=== PATIENT | male | born 1935 | race Caucasian/White ===

== ENCOUNTER 2018-08-30 19:01 | Emergency (ER) | payer MEDICAID, MEDICARE, OTHER ==
[~2018-08-30] VITALS: Ht 167.6 cm; Wt 81.6 kg
[2018-08-30 20:08] LABS: Basophils # (auto) 0 uL; Basophils % (auto) 0.6 % (0.0-2.0); Eosinophils # (auto) 0.3 uL; Eosinophils % (auto) 4.4 % (0.0-7.0); Hematocrit 48.9 % (41.0-53.0); Hemoglobin 16.1 g/dL (13.5-17.5); Lymphocytes # (auto) 1.8 uL; Lymphocytes % (auto) 28.7 % (10.0-50.0); Mean Corpuscular Hemoglobin 31.6 pg (28.0-32.0); Mean Corpuscular Volume 95.8 fL (80.0-100.0); Monocytes # (auto) 0.6 uL; Neutrophils # (auto) 3.5 uL; Neutrophils % (auto) 57.3 % (37.0-80.0); Nucleated Red Blood Cells % 0.1 %; Platelet Count (auto) 180 10^3/uL (140-450); Red Cell Distribution Width 15.6 % (11.8-14.3); White Blood Cell 6.2 10^3/uL (4.4-10.8)
[2018-08-30] MEDS ORDERED: SODIUM CHLORIDE 0.9% 1,000 ML IV ONE (20:10)
[2018-08-30 20:23] LABS: Alanine Aminotransferase 23 U/L (16-61); Albumin 3.5 g/dL (3.4-5.0); Anion Gap 10 (5-15); Blood Urea Nitrogen 17 mg/dL (7-18); Calcium 9.2 mg/dL (8.5-10.1); Carbon Dioxide 22 mmol/L (21-32); Chloride 104 mmol/L (98-107); Glucose 220 mg/dL (74-106); Potassium 3.8 mmol/L (3.5-5.1); Sodium 136 mmol/L (136-145)
[2018-08-30 20:28] LABS: Alkaline Phosphatase 92 U/L (45-117); Aspartate Aminotransferase 28 U/L (15-37); BUN/Creatinine Ratio 14.4; Bilirubin, Total 0.5 mg/dL (0.2-1.0); GFR African American 76 mL/min; GFR Non-African American 63 mL/min; Total Protein 7.5 g/dL (6.4-8.2)
[2018-08-30 22:34] LABS: Urine Bacteria NONE SEEN /hpf (None Seen); Urine Blood Negative /uL (Negative); Urine Hyaline Cast FEW /lpf (0 - 2); Urine Specific Gravity 1.024 (1.001-1.035); Urine WBC 2 /hpf (0 - 3)
[2018-08-31 00:28] VITALS: BP 139/64
== END 2018-08-31 02:35 | disposition home or self-care (01) ==
LOC: ER 19:01 → EDUNIT# 19:01 → ER 08-31 02:35
DX: K80.20 Calculus of gallbladder without cholecystitis without obstruction (principal); K57.30 Diverticulosis of large intestine without perforation or abscess without bleeding; J44.9 Chronic obstructive pulmonary disease, unspecified; E11.9 Type 2 diabetes mellitus without complications; E78.5 Hyperlipidemia, unspecified; I10 Essential (primary) hypertension
CPT/HCPCS: 36415; 74176; 80053; 81001; 83690; 83735; 84484; 85025

== ENCOUNTER 2020-07-27 13:48 | Emergency (ER) | payer MEDICARE, OTHER ==
[~2020-07-27] VITALS: Ht 172.7 cm; Wt 89.8 kg
[2020-07-27 15:17] LABS: Basophils # (auto) 0 10 ^3/uL (0-0.2); Basophils % (auto) 0.7 % (0.0-2.0); Eosinophils # (auto) 0.4 10 ^3/uL (0-0.8); Eosinophils % (auto) 5.4 % (0.0-7.0); Hematocrit 40.9 % (41.0-53.0); Hemoglobin 13.6 g/dL (13.5-17.5); Lymphocytes # (auto) 1.4 10 ^3/uL (0.4-5.4); Mean Corpuscular Hemoglobin 31.2 pg (28.0-32.0); Mean Corpuscular Hgb Conc. 33.2 g/dL (32.0-36.0); Mean Corpuscular Volume 93.8 fL (80.0-100.0); Monocytes # (auto) 0.5 10 ^3/uL (0-1.3); Monocytes % (auto) 7.7 % (0.0-12.0); Neutrophils # (auto) 4.4 10 ^3/uL (1.6-8.6); Neutrophils % (auto) 65.2 % (37.0-80.0); Nucleated Red Blood Cells % 0.1 %; Platelet Count (auto) 154 10^3/uL (140-450); Red Blood Cells 4.36 10^6/uL (4.5-5.90); Red Cell Distribution Width 15.8 % (11.8-14.3); White Blood Cell 6.7 10^3/uL (4.4-10.8)
[2020-07-27 15:37] LABS: Albumin 3.1 g/dL (3.4-5.0); Anion Gap 6 (5-15); Blood Urea Nitrogen 11 mg/dL (7-18); Calcium 8.1 mg/dL (8.5-10.1); Carbon Dioxide 26 mmol/L (21-32); Chloride 106 mmol/L (98-107); Glucose 212 mg/dL (74-106); Potassium 3.5 mmol/L (3.5-5.1); Sodium 138 mmol/L (136-145)
[2020-07-27 15:43] LABS: Alanine Aminotransferase 17 U/L (16-61); Alkaline Phosphatase 87 U/L (45-117); Aspartate Aminotransferase 15 U/L (15-37); Bilirubin, Total 0.5 mg/dL (0.2-1.0); GFR African American 101 mL/min; GFR Non-African American 83 mL/min; Total Protein 6.4 g/dL (6.4-8.2)
[2020-07-27 15:51] LABS: INR 1.05 (0.9-1.15); Partial Thromboplastin Time 28.1 sec (23.0-31.2)
[2020-07-27] MEDS ORDERED: DOCUSATE SOD 100 MG CAP PO ONE (16:45)
[2020-07-27 17:59] VITALS: BP 140/68
== END 2020-07-27 18:05 | disposition home or self-care (01) ==
LOC: ER 13:48 → EDBD 13:48 → ER 18:05
DX: K80.20 Calculus of gallbladder without cholecystitis without obstruction (principal); E11.65 Type 2 diabetes mellitus with hyperglycemia; E44.1 Mild protein-calorie malnutrition; J44.9 Chronic obstructive pulmonary disease, unspecified; E78.5 Hyperlipidemia, unspecified; I10 Essential (primary) hypertension; Z68.30 Body mass index [BMI] 30.0-30.9, adult
CPT/HCPCS: 36415; 71250; 74176; 80053; 84484; 85025; 85610; 85730; 93005

== ENCOUNTER 2023-08-30 22:03 | Inpatient (IN) | payer MEDICARE, MEDICAID ==
[~2023-08-30] VITALS: Ht 167.6 cm; Wt 85.8 kg
[2023-08-30 22:25] VITALS: PULSE 101; RESP 17; O2SAT 89
[2023-08-30] MEDS ORDERED: ACETAMINOPHEN 325 MG TAB PO ONE (22:30)
[2023-08-30 22:47] LABS: Basophils # (auto) 0 10 ^3/uL (0-0.2); Basophils % (auto) 0.2 % (0.0-2.0); Eosinophils # (auto) 0 10 ^3/uL (0-0.8); Hemoglobin 14.9 g/dL (13.5-17.5); Lymphocytes # (auto) 1.4 10 ^3/uL (0.4-5.4); Lymphocytes % (auto) 19.6 % (10.0-50.0); Mean Corpuscular Hemoglobin 31.1 pg (28.0-32.0); Mean Corpuscular Hgb Conc. 33.1 g/dL (32.0-36.0); Monocytes # (auto) 0.4 10 ^3/uL (0-1.3); Monocytes % (auto) 5.7 % (0.0-12.0); Neutrophils # (auto) 5.2 10 ^3/uL (1.6-8.6); Neutrophils % (auto) 74.5 % (37.0-80.0); Nucleated Red Blood Cells % 0.1 %; Red Blood Cells 4.79 10^6/uL (4.5-5.90); Red Cell Distribution Width 15.3 % (11.8-14.3)
[2023-08-30] MEDS ORDERED: cloNIDine HCL 0.1 MG TAB PO ONE (23:00)
[2023-08-30 23:06] LABS: Alanine Aminotransferase 19 U/L (7-40); Albumin 3.8 g/dL (3.2-4.8); Alkaline Phosphatase 78 U/L (46-116); Anion Gap 10 (5-15); Aspartate Aminotransferase 36 U/L (13-40); BUN/Creatinine Ratio 8.7 (10.0-20.0); Blood Urea Nitrogen 8 mg/dL (9-23); Calcium 8.1 mg/dL (8.7-10.4); Carbon Dioxide 22 mmol/L (20-30); Chloride 105 mmol/L (98-107); Glucose 202 mg/dL (74-106); Magnesium 1.5 mg/dL (1.6-2.6); Potassium 3.6 mmol/L (3.5-5.1); Sodium 137 mmol/L (136-145)
[2023-08-30 23:07] LABS: Bilirubin, Total 0.8 mg/dL (0.2-1.0); Total Protein 6.8 g/dL (5.7-8.2)
[2023-08-30 23:45] LABS: Rapid Influenza A Negative (Negative); Rapid Influenza B Negative (Negative)
[2023-08-30 23:47] LABS: COVID19 ANTIGEN SOFIA FIA POSITIVE (NEGATIVE)
[2023-08-31] VITALS (12 sets, daily range): BP systolic 109–186; BP diastolic 55–76; PULSE 18–101; RESP 16–25; TEMP 97.3–101.3; O2SAT 87–100
[2023-08-31] MEDS ORDERED: NIRM1TAB PO ×2 (00:17)
[2023-08-31] MEDS ORDERED: HYDROmorphone HCL 2 MG/ML VL/or syr IV PRN (01:15)
[2023-08-31] MEDS ORDERED: HYDROcodone-ACET 5/325MG TAB PO PRN (01:15)
[2023-08-31] MEDS ORDERED: DOCUSATE SOD 100 MG CAP PO PRN (01:15)
[2023-08-31] MEDS ORDERED: ACETAMINOPHEN 325 MG TAB PO PRN (01:15)
[2023-08-31] MEDS ORDERED: REMDESIVIR PER PHARMACY 0 ML IV SCH (01:15)
[2023-08-31] MEDS ORDERED: AZITHROMYCIN 500MG/ 250ML 250 ML IV ONE ×2 (01:15→11:00)
[2023-08-31] MEDS ORDERED: ONDANSETRON HCL 4 MG/2 ML VIAL IV PRN (01:15)
[2023-08-31] MEDS ORDERED: DEXTROSE (50%) 50ML SYRG IV PRN (01:15)
[2023-08-31] MEDS ORDERED: cefTRIAXone 1GM/50ML D5W 50 ML IV ONE ×2 (01:15→11:00)
[2023-08-31] MEDS ORDERED: MAGNESIUM OXIDE 400 MG TAB PO ONE (01:15)
[2023-08-31] MEDS ORDERED: SODIUM CHLORIDE 0.9% 1,000 ML IV ONE (01:30)
[2023-08-31 01:37] LABS: Base Excess 0.1 mmol/L (-2.0-2.0)
[2023-08-31] MEDS ORDERED: DexAMETHasone 4 MG TAB PO SCH (02:00)
[2023-08-31 04:14] LABS: Urine WBC None Seen /hpf (0 - 3)
[2023-08-31 04:33] LABS: Urine Bacteria NONE SEEN /hpf (None Seen); Urine Blood Negative /uL (Negative); Urine Clarity Clear (Clear); Urine Color Yellow (Yellow); Urine Protein, UAD TRACE (Negative); Urine Specific Gravity 1.011 (1.001-1.035); Urine pH 6.5 (5.0-8.0)
[2023-08-31] MEDS ORDERED: FIN5T PO (04:43)
[2023-08-31] MEDS ORDERED: METF-372 PO (04:43)
[2023-08-31] MEDS ORDERED: METO-289 PO (04:43)
[2023-08-31] MEDS ORDERED: ATOR40TA52 PO (04:43)
[2023-08-31] MEDS ORDERED: INSUINJ37 SC (04:43)
[2023-08-31] MEDS: SODIUM CHLOR 0.9% PF (SALINE LOCK) 10ML VIAL/SYR IV SCH ×3 (05:40→22:00)
[2023-08-31] MEDS: ACCU-CHEK COMFORT CURVE STRIP VI SCH ×3 (06:25→22:25)
[2023-08-31] MEDS: InsuLIN REG 1unit/0.01ml Soln (100units/ml) SC SCH ×3 (06:26→22:15)
[2023-08-31] MEDS ORDERED: REMDESIVIR 200 MG in NS 210ml LOADING DOSE ADULT IV ONE (08:00)
[2023-08-31] MEDS: IPRATROPIUM BROM 0.5 MG/2.5ML INH SOL NEB SCH ×3 (08:07→18:28)
[2023-08-31] MEDS: ALBUTEROL SULF 2.5 MG/0.5ML(0.5%) NEB SOLN NEB SCH ×3 (08:07→18:28)
[2023-08-31] MEDS ORDERED: ASCORBIC ACID 500 MG TAB PO ONE (11:00)
[2023-08-31] MEDS ORDERED: ZINC SULFATE 220mg CAP or TAB PO ONE (11:00)
[2023-08-31] MEDS ORDERED: CHOLECALCIFEROL (VITD3) 2,000 UNIT CAP/TAB PO ONE (11:00)
[2023-08-31] MEDS ORDERED: METOPROLOL SUCCINATE XL 50 MG TAB PO ONE (11:15)
[2023-08-31] MEDS ORDERED: FINASTERIDE 5 MG TAB PO ONE (11:15)
[2023-08-31] MEDS: ENOXAPARIN SOD 40 MG/0.4 ML SYRINGE SC SCH (11:16)
[2023-08-31] MEDS: guaiFENesin-CODEINE Liq 5 ML UD PO SCH ×2 (14:16→22:27)
[2023-08-31] MEDS: methylPREDNISolone SOD SUCC 40 MG/ML VL IV SCH ×2 (14:17→22:27)
[2023-08-31] MEDS: ASCORBIC ACID 500 MG TAB PO SCH (22:27)
[2023-08-31] MEDS: ATORVASTATIN 20 MG TAB PO SCH (22:27)
[2023-09-01] VITALS (16 sets, daily range): BP systolic 135–162; BP diastolic 67–86; PULSE 64–100; RESP 16–21; TEMP 97.3–98.5; O2SAT 76–100
[2023-09-01] MEDS: ALBUTEROL SULF 2.5 MG/0.5ML(0.5%) NEB SOLN NEB SCH ×5 (01:03→23:53)
[2023-09-01] MEDS: IPRATROPIUM BROM 0.5 MG/2.5ML INH SOL NEB SCH ×5 (01:03→23:53)
[2023-09-01] MEDS: methylPREDNISolone SOD SUCC 40 MG/ML VL IV SCH ×3 (06:00→21:43)
[2023-09-01 06:07] LABS: Alanine Aminotransferase 15 U/L (7-40); Albumin 3.3 g/dL (3.2-4.8); Alkaline Phosphatase 61 U/L (46-116); Anion Gap 9 (5-15); Aspartate Aminotransferase 31 U/L (13-40); Calcium 8.4 mg/dL (8.7-10.4); Carbon Dioxide 23 mmol/L (20-30); Chloride 108 mmol/L (98-107); Glucose 279 mg/dL (74-106); Potassium 4.1 mmol/L (3.5-5.1); Sodium 140 mmol/L (136-145)
[2023-09-01 06:09] LABS: Bilirubin, Total 0.5 mg/dL (0.2-1.0); Total Protein 5.8 g/dL (5.7-8.2)
[2023-09-01] MEDS: SODIUM CHLOR 0.9% PF (SALINE LOCK) 10ML VIAL/SYR IV SCH ×3 (06:16→21:43)
[2023-09-01] MEDS: InsuLIN REG 1unit/0.01ml Soln (100units/ml) SC SCH ×4 (06:19→23:56)
[2023-09-01] MEDS: guaiFENesin-CODEINE Liq 5 ML UD PO SCH ×3 (06:25→21:43)
[2023-09-01 07:20] LABS: BUN/Creatinine Ratio 18.2 (10.0-20.0); Blood Urea Nitrogen 16 mg/dL (9-23)
[2023-09-01] MEDS: ENOXAPARIN SOD 40 MG/0.4 ML SYRINGE SC SCH (09:06)
[2023-09-01] MEDS: cefTRIAXone 1GM/50ML D5W 50 ML IV SCH (09:06)
[2023-09-01] MEDS: CHOLECALCIFEROL (VITD3) 2,000 UNIT CAP/TAB PO SCH (09:07)
[2023-09-01] MEDS: METOPROLOL SUCCINATE XL 50 MG TAB PO SCH (09:07)
[2023-09-01] MEDS: ASCORBIC ACID 500 MG TAB PO SCH ×2 (09:07→21:43)
[2023-09-01] MEDS: FINASTERIDE 5 MG TAB PO SCH (09:07)
[2023-09-01] MEDS: AZITHROMYCIN 500MG/ 250ML 250 ML IV SCH (09:08)
[2023-09-01] MEDS: ZINC SULFATE 220mg CAP or TAB PO SCH (09:08)
[2023-09-01] MEDS ORDERED: DEXTROSE (50%) 50ML SYRG IV PRN (09:30)
[2023-09-01] MEDS: ACCU-CHEK COMFORT CURVE STRIP VI SCH ×6 (11:30→23:54)
[2023-09-01] MEDS: REMDESIVIR 100mg 100 MG in SODIUM CHL 0.9% 230 ML IV SCH (15:13)
[2023-09-01] MEDS: ATORVASTATIN 20 MG TAB PO SCH (21:43)
[2023-09-01] MEDS ORDERED: INSULIN LANTUS (GLARGINE) 1 /0.01ml (100units/ml) SC SCH (22:00)
[2023-09-02] VITALS (12 sets, daily range): BP systolic 122–163; BP diastolic 64–85; PULSE 48–98; RESP 18–21; TEMP 97.4–98.9; O2SAT 64–100
[2023-09-02] MEDS: ACCU-CHEK COMFORT CURVE STRIP VI SCH ×4 (05:45→17:42)
[2023-09-02] MEDS: InsuLIN REG 1unit/0.01ml Soln (100units/ml) SC SCH ×4 (05:45→21:53)
[2023-09-02] MEDS: methylPREDNISolone SOD SUCC 40 MG/ML VL IV SCH ×3 (05:46→22:07)
[2023-09-02] MEDS: guaiFENesin-CODEINE Liq 5 ML UD PO SCH ×3 (05:46→22:07)
[2023-09-02] MEDS: IPRATROPIUM BROM 0.5 MG/2.5ML INH SOL NEB SCH (05:48)
[2023-09-02] MEDS: ALBUTEROL SULF 2.5 MG/0.5ML(0.5%) NEB SOLN NEB SCH (05:48)
[2023-09-02] MEDS: SODIUM CHLOR 0.9% PF (SALINE LOCK) 10ML VIAL/SYR IV SCH ×3 (06:25→22:07)
[2023-09-02 07:04] LABS: Alanine Aminotransferase 22 U/L (7-40); Albumin 3.3 g/dL (3.2-4.8); Alkaline Phosphatase 78 U/L (46-116); Anion Gap 9 (5-15); Aspartate Aminotransferase 38 U/L (13-40); BUN/Creatinine Ratio 21.7 (10.0-20.0); Blood Urea Nitrogen 18 mg/dL (9-23); Calcium 8.5 mg/dL (8.7-10.4); Carbon Dioxide 24 mmol/L (20-30); Chloride 108 mmol/L (98-107); Glucose 215 mg/dL (74-106); Potassium 3.7 mmol/L (3.5-5.1); Sodium 141 mmol/L (136-145)
[2023-09-02 07:05] LABS: Bilirubin, Total 0.4 mg/dL (0.2-1.0); Total Protein 5.9 g/dL (5.7-8.2)
[2023-09-02] MEDS: cefTRIAXone 1GM/50ML D5W 50 ML IV SCH (08:29)
[2023-09-02] MEDS ORDERED: LACTULOSE 20Gm/30ML SOLN PO ONE (08:45)
[2023-09-02] MEDS: ZINC SULFATE 220mg CAP or TAB PO SCH (09:35)
[2023-09-02] MEDS: DOCUSATE SOD 100 MG CAP PO SCH ×2 (09:35→22:07)
[2023-09-02] MEDS: ASCORBIC ACID 500 MG TAB PO SCH ×2 (09:35→22:07)
[2023-09-02] MEDS: ENOXAPARIN SOD 40 MG/0.4 ML SYRINGE SC SCH (09:35)
[2023-09-02] MEDS: CHOLECALCIFEROL (VITD3) 2,000 UNIT CAP/TAB PO SCH (09:35)
[2023-09-02] MEDS: AZITHROMYCIN 500MG/ 250ML 250 ML IV SCH (09:35)
[2023-09-02] MEDS: METOPROLOL SUCCINATE XL 50 MG TAB PO SCH (09:36)
[2023-09-02] MEDS: FINASTERIDE 5 MG TAB PO SCH (09:36)
[2023-09-02] MEDS: ALBUTEROL SULF HFA 90MCG INH 200DOSE IN SCH ×2 (13:18→22:35)
[2023-09-02 13:33] LABS: COVID19 ANTIGEN SOFIA FIA POSITIVE (NEGATIVE)
[2023-09-02] MEDS ORDERED: ALBUTEROL SULF HFA 90MCG INH 200DOSE IN SCH (14:00)
[2023-09-02] MEDS: REMDESIVIR 100mg 100 MG in SODIUM CHL 0.9% 230 ML IV SCH (15:28)
[2023-09-02] MEDS: cloNIDine HCL 0.1 MG TAB PO PRN (17:10)
[2023-09-02] MEDS: INSULIN LANTUS (GLARGINE) 1 /0.01ml (100units/ml) SC SCH (21:59)
[2023-09-02] MEDS: ATORVASTATIN 20 MG TAB PO SCH (22:07)
[2023-09-03] VITALS (11 sets, daily range): BP systolic 116–168; BP diastolic 55–88; PULSE 62–96; RESP 16–20; TEMP 97.2–98.3; O2SAT 74–97
[2023-09-03] MEDS: ACCU-CHEK COMFORT CURVE STRIP VI SCH ×4 (06:00→18:15)
[2023-09-03 06:01] LABS: Chloride 108 mmol/L (98-107); Sodium 140 mmol/L (136-145)
[2023-09-03] MEDS: InsuLIN REG 1unit/0.01ml Soln (100units/ml) SC SCH ×3 (06:08→18:16)
[2023-09-03] MEDS: methylPREDNISolone SOD SUCC 40 MG/ML VL IV SCH ×3 (06:15→21:14)
[2023-09-03] MEDS: guaiFENesin-CODEINE Liq 5 ML UD PO SCH ×3 (06:15→21:14)
[2023-09-03] MEDS: SODIUM CHLOR 0.9% PF (SALINE LOCK) 10ML VIAL/SYR IV SCH ×3 (06:15→21:14)
[2023-09-03 06:31] LABS: Anion Gap 7 (5-15); Carbon Dioxide 25 mmol/L (20-30)
[2023-09-03 06:32] LABS: Calcium 8.2 mg/dL (8.7-10.4)
[2023-09-03 06:36] LABS: Alkaline Phosphatase 75 U/L (46-116); Glucose 253 mg/dL (74-106)
[2023-09-03 06:37] LABS: BUN/Creatinine Ratio 22.4 (10.0-20.0); Blood Urea Nitrogen 17 mg/dL (9-23)
[2023-09-03 06:38] LABS: Alanine Aminotransferase 23 U/L (7-40); Albumin 3.2 g/dL (3.2-4.8); Aspartate Aminotransferase 27 U/L (13-40)
[2023-09-03 06:39] LABS: Bilirubin, Total 0.5 mg/dL (0.2-1.0); Total Protein 5.8 g/dL (5.7-8.2)
[2023-09-03] MEDS: ALBUTEROL SULF HFA 90MCG INH 200DOSE IN SCH ×3 (07:30→21:45)
[2023-09-03] MEDS: cefTRIAXone 1GM/50ML D5W 50 ML IV SCH (08:59)
[2023-09-03] MEDS: METOPROLOL SUCCINATE XL 50 MG TAB PO SCH (09:08)
[2023-09-03] MEDS: ENOXAPARIN SOD 40 MG/0.4 ML SYRINGE SC SCH (09:08)
[2023-09-03] MEDS: DOCUSATE SOD 100 MG CAP PO SCH ×2 (09:08→21:15)
[2023-09-03] MEDS: CHOLECALCIFEROL (VITD3) 2,000 UNIT CAP/TAB PO SCH (09:11)
[2023-09-03] MEDS: ASCORBIC ACID 500 MG TAB PO SCH ×2 (09:11→21:15)
[2023-09-03] MEDS: ZINC SULFATE 220mg CAP or TAB PO SCH (09:11)
[2023-09-03] MEDS: FINASTERIDE 5 MG TAB PO SCH (09:11)
[2023-09-03] MEDS ORDERED: LORazepam 0.5 MG TAB PO PRN (09:15)
[2023-09-03 09:28] LABS: Basophils # (auto) 0 10 ^3/uL (0-0.2); Basophils % (auto) 0.2 % (0.0-2.0); Eosinophils # (auto) 0 10 ^3/uL (0-0.8); Hemoglobin 13.8 g/dL (13.5-17.5); Lymphocytes # (auto) 0.6 10 ^3/uL (0.4-5.4); Lymphocytes % (auto) 5.2 % (10.0-50.0); Mean Corpuscular Hemoglobin 30.8 pg (28.0-32.0); Mean Corpuscular Hgb Conc. 32.8 g/dL (32.0-36.0); Monocytes # (auto) 0.5 10 ^3/uL (0-1.3); Monocytes % (auto) 4.4 % (0.0-12.0); Neutrophils # (auto) 10.8 10 ^3/uL (1.6-8.6); Neutrophils % (auto) 90.2 % (37.0-80.0); Nucleated Red Blood Cells % 0.1 %; Red Blood Cells 4.47 10^6/uL (4.5-5.90); Red Cell Distribution Width 15.3 % (11.8-14.3); White Blood Cell 11.9 10^3/uL (4.4-10.8)
[2023-09-03] MEDS ORDERED: FUROSEMIDE 40 MG/4 ML VIAL IV ONE (09:30)
[2023-09-03] MEDS: AZITHROMYCIN 500MG/ 250ML 250 ML IV SCH (11:35)
[2023-09-03] MEDS: REMDESIVIR 100mg 100 MG in SODIUM CHL 0.9% 230 ML IV SCH (15:50)
[2023-09-03] MEDS: FUROSEMIDE 40 MG/4 ML VIAL IV SCH (17:55)
[2023-09-03] MEDS: cloNIDine HCL 0.1 MG TAB PO PRN (17:55)
[2023-09-03] MEDS: ATORVASTATIN 20 MG TAB PO SCH (21:15)
[2023-09-03] MEDS: INSULIN LANTUS (GLARGINE) 1 /0.01ml (100units/ml) SC SCH (21:22)
[2023-09-04] VITALS (11 sets, daily range): BP systolic 125–181; BP diastolic 62–99; PULSE 60–79; RESP 16–19; TEMP 97.6–98.4; O2SAT 88–96
[2023-09-04] MEDS: ACCU-CHEK COMFORT CURVE STRIP VI SCH ×4 (00:05→18:00)
[2023-09-04] MEDS: InsuLIN REG 1unit/0.01ml Soln (100units/ml) SC SCH ×4 (00:11→18:00)
[2023-09-04] MEDS: methylPREDNISolone SOD SUCC 40 MG/ML VL IV SCH ×2 (05:11→14:10)
[2023-09-04] MEDS: guaiFENesin-CODEINE Liq 5 ML UD PO SCH ×3 (05:12→14:10)
[2023-09-04] MEDS: FUROSEMIDE 40 MG/4 ML VIAL IV SCH ×2 (05:12→18:00)
[2023-09-04] MEDS: SODIUM CHLOR 0.9% PF (SALINE LOCK) 10ML VIAL/SYR IV SCH ×2 (05:24→14:09)
[2023-09-04 07:09] LABS: Alanine Aminotransferase 27 U/L (7-40); Albumin 3.4 g/dL (3.2-4.8); Alkaline Phosphatase 89 U/L (46-116); Anion Gap 10 (5-15); Aspartate Aminotransferase 27 U/L (13-40); BUN/Creatinine Ratio 16.5 (10.0-20.0); Bilirubin, Total 0.6 mg/dL (0.2-1.0); Blood Urea Nitrogen 14 mg/dL (9-23); Calcium 8.7 mg/dL (8.5-10.1); Carbon Dioxide 26 mmol/L (20-30); Chloride 103 mmol/L (98-107); Glucose 266 mg/dL (74-106); Potassium 3.5 mmol/L (3.5-5.1); Sodium 139 mmol/L (136-145)
[2023-09-04] MEDS: ALBUTEROL SULF HFA 90MCG INH 200DOSE IN SCH ×2 (07:50→16:00)
[2023-09-04] MEDS: cefTRIAXone 1GM/50ML D5W 50 ML IV SCH (08:24)
[2023-09-04] MEDS ORDERED: IOHEXOL 350 MG/ML 100ML IJ ONE (08:54)
[2023-09-04] MEDS: ZINC SULFATE 220mg CAP or TAB PO SCH (10:10)
[2023-09-04] MEDS: ENOXAPARIN SOD 40 MG/0.4 ML SYRINGE SC SCH (10:11)
[2023-09-04] MEDS: METOPROLOL SUCCINATE XL 50 MG TAB PO SCH (10:11)
[2023-09-04] MEDS: ASCORBIC ACID 500 MG TAB PO SCH (10:11)
[2023-09-04] MEDS: DOCUSATE SOD 100 MG CAP PO SCH (10:11)
[2023-09-04] MEDS: FINASTERIDE 5 MG TAB PO SCH (10:11)
[2023-09-04] MEDS: CHOLECALCIFEROL (VITD3) 2,000 UNIT CAP/TAB PO SCH (10:11)
[2023-09-04] MEDS: AZITHROMYCIN 500MG/ 250ML 250 ML IV SCH (10:12)
[2023-09-04] MEDS: REMDESIVIR 100mg 100 MG in SODIUM CHL 0.9% 230 ML IV SCH (15:07)
[2023-09-04] MEDS: cloNIDine HCL 0.1 MG TAB PO PRN (15:27)
[2023-09-04] MEDS ORDERED: hydrALAZINE HCL 20 MG/ML VL IV ONE (17:15)
[2023-09-04 17:28] LABS: COVID19 ANTIGEN SOFIA FIA NEGATIVE (NEGATIVE)
== END 2023-09-04 18:00 | DRG 177 ==
LOC: EDBD 22:03 → ER 22:03 → TELE 08-31 01:08 → TELE-CENTR 08-31 03:07 → CENTRAL 09-01 16:26
PROVIDERS: ADMIT Internal Medicine; ATTEND Family Medicine
PROC: XW033E5 Introduction of Remdesivir Anti-infective into Peripheral Vein, Percutaneous Approach, New Technology Group 5 (ICD-10-PCS; principal; 2023-08-31)
PROC: 05HC33Z Insertion of Infusion Device into Left Basilic Vein, Percutaneous Approach (ICD-10-PCS; 2023-09-02)
PROC: B54NZZA Ultrasonography of Left Upper Extremity Veins, Guidance (ICD-10-PCS; 2023-09-02)
DX: U07.1 COVID-19 (principal); J12.82 Pneumonia due to coronavirus disease 2019; J81.0 Acute pulmonary edema; J96.01 Acute respiratory failure with hypoxia; J44.0 Chronic obstructive pulmonary disease with (acute) lower respiratory infection; J44.1 Chronic obstructive pulmonary disease with (acute) exacerbation; J45.901 Unspecified asthma with (acute) exacerbation; E78.00 Pure hypercholesterolemia, unspecified; E83.42 Hypomagnesemia; I10 Essential (primary) hypertension; N40.0 Benign prostatic hyperplasia without lower urinary tract symptoms; E11.9 Type 2 diabetes mellitus without complications; F41.9 Anxiety disorder, unspecified; Z23 Encounter for immunization; Z60.2 Problems related to living alone
CPT/HCPCS: 36415; 36600; 71045; 71275; 80053; 81001; 82805; 82962; 83036; 83735; 83880; 84484; 85025; 85379; 87040; 87426; 87804; 93306; 93970; 94640; 97110; 97163; G0378; J1815